=== PATIENT | male | born 1975 | race Caucasian/White ===

== ENCOUNTER 2017-09-20 05:35 | Emergency (ER) | payer MEDICAID ==
[2017-09-20 05:41] VITALS: RESP 16
--- NOTE | 2017-09-20 07:33 | EDPHY ---
H & P Time Seen by Provider: 09/20/17 07:32 HPI/ROS: Chief complaint. Ankle pain HPI. 42-year-old male presents emergency department with multiple joint pain and swelling. He has a history of RA. He has not had any recent injury. Patient is homeless and [facility] and has been out of his medication for 2 days. He has had gradually increased pain swelling to multiple joints of ankles and wrists. He is followed by [facility] and [place]. ROS Constitutional. no fever/chills, no weakness Eyes. no problems with vision ENT. no sore throat, no nasal drainage Cardiovascular. no chest pain Respiratory. no shortness of breath, no cough Abdominal. no abdominal pain, no nausea/vomiting, no diarrhea . no problems urinating MS. Joint swelling Skin. no rash Lymph. no swollen glands Neuro. no headache, no dizziness, no difficulty walking or with speech Past Medical/Surgical History: RA, chronic back pain Social History: Single, homeless, nonsmoker, no alcohol Smoking Status: Never smoked Physical Exam: General Appearance: Alert well-developed male mild distress vital signs are stable Eyes: Pupils equal and round no pallor or injection. ENT, Mouth: Mucous membranes are moist. Respiratory: There are no retractions, lungs are clear to auscultation. Cardiovascular: Regular rate and rhythm. Gastrointestinal: Abdomen is soft and nontender, no masses, bowel sounds normal. Neurological: Awake and alert, sensory and motor exams grossly normal. Skin: Warm and dry, no rashes. Musculoskeletal: Neck is supple nontender. Extremities mild swelling to both wrists and both ankles. No erythema. Psychiatric: Patient is oriented X 3, there is no agitation. Constitutional: Initial Vital Signs Temperature (C) 36.3 C 09/20/17 05:37 Heart Rate 104 H 09/20/17 05:37 Respiratory Rate 16 09/20/17 05:37 Blood Pressure 129/84 H 09/20/17 05:37 O2 Sat (%) 96 09/20/17 05:37 O2 Delivery Mode Room Air Allergies/Adverse Reactions: No Known Allergies Allergy (Unverified 09/20/17 05:40) Home Medications: Medication Instructions Recorded predniSONE 20 mg PO DAILY #10 tablet 09/20/17 Medical Decision Making Procedures: Prednisone and ibuprofen orally ED Course/Re-evaluation: Patient remained stable. He and I discussed treatment plan including criteria for return importance of follow-up and further evaluation. The patient expresses concern for his safety for going back to [place]. He would like to follow up with physician in [facility]. Differential Diagnosis: This appears to be exacerbation of rheumatoid arthritis secondary to not taking medication. No trauma. I do not think imaging studies are indicated. Departure - Departure Disposition: Home, Routine, Self-Care Clinical Impression: Joint pain Qualifiers: Joint pain location: ankle Laterality: bilateral Qualified Code(s): M25.571 - Pain in right ankle and joints of right foot; M25.572 - Pain in left ankle and joints of left foot; M25.572 - Pain in left ankle and joints of left foot Condition: Good Instructions: Swollen Joint (ED) Additional Instructions: Take prednisone each day. Return for worsening symptoms. [facility]. Referrals: NONE *PRIMARY CARE P,. [Primary Care Provider] - As per Instructions [facility] [Outside] - 5-7 days, call for appt. Prescriptions: predniSONE 20 mg PO DAILY #10 tablet
[2017-09-20] MEDS ORDERED: predniSONE 20 MG TAB PO ONE (07:38)
[2017-09-20] MEDS ORDERED: IBUPROFEN 600 MG TAB PO ONE (07:38)
[2017-09-20 08:03] VITALS: BP 125/70; PULSE 80; TEMP 98.6; O2SAT 98
== END 2017-09-20 08:03 | disposition home or self-care (01) ==
DX: M25.571 Pain in right ankle and joints of right foot (principal); M25.572 Pain in left ankle and joints of left foot
CPT/HCPCS: J7512